=== PATIENT | female | born 1950 | race Caucasian/White ===

== ENCOUNTER → 2023-03-02 13:38 | Outpatient (BNVA) | payer MEDICARE, OTHER, SELFPAY | PROVIDERS: Visit Provider Student in an Organized Health Care Education/Training Program | DX: Z96.9 Presence of functional implant, unspecified; M16.12 Unilateral primary osteoarthritis, left hip; Z01.818 Encounter for other preprocedural examination | CPT/HCPCS: 36415; 73502; 80053; 81001; 85025; 99204 ==

== ENCOUNTER → 2023-03-17 12:39 | Outpatient (BNVA) | payer MEDICARE, OTHER, SELFPAY | PROVIDERS: Visit Provider Family Medicine | DX: Z01.818 Encounter for other preprocedural examination (principal); M16.12 Unilateral primary osteoarthritis, left hip; Z96.9 Presence of functional implant, unspecified | CPT/HCPCS: 81000; 81003 ==

== ENCOUNTER 2023-03-24 13:06 | Outpatient (CLI) | payer MEDICARE, OTHER, SELFPAY ==
--- NOTE | 2023-03-24 13:00 | CT_ITS ---
WS: [id number] CT LEFT HIP NONCONTRAST TECHNIQUE: Noncontrast CT of the LEFT hip to include the LEFT knee. CLINICAL INFORMATION: M16.12 - Unilateral primary osteoarthritis, left hip COMPARISON: None. DLP: [address] scans at [facility] use at least one of these dose optimization techniques: automated e xposure control; mA and/or kV adjustment per patient size (includes targeted exams where dose is matc hed to clinical indication); or iterative reconstruction. FINDINGS: Osteopenia. 3 screw fixation of the LEFT femur. Advanced arthritis LEFT hip with hypertrophic changes about the femoral head and neck and acetabulum. Advanced joint space narrowing. Moderate degenerative narrowing RIGHT hip. Degenerative arthritis sacroiliac joints. Sclerotic bone i sland RIGHT sacrum. Vertebroplasty changes in the lower lumbar spine. Advanced facet arthropathy lowe r lumbar spine. Moderate central canal stenosis L4-5 and mild central canal stenosis L5-S1. Tiny fat- containing umbilical hernia. Sigmoid constipation. IMPRESSION: Images obtained for preoperative purposes.
== END 2023-03-24 13:07 | disposition home or self-care (01) ==
PROVIDERS: PCP Student in an Organized Health Care Education/Training Program; Visit Provider Student in an Organized Health Care Education/Training Program
DX: M16.12 Unilateral primary osteoarthritis, left hip (principal)
CPT/HCPCS: 73700

== ENCOUNTER 2023-04-05 10:27 | Observation (INO) | payer MEDICARE, OTHER, SELFPAY ==
[2023-04-04 13:52] VITALS: BMI 22.3
[2023-04-05] VITALS (21 sets, daily range): BP systolic 91–178; BP diastolic 49–83; PULSE 66–76; RESP 16–20; TEMP 36.1–36.7; O2SAT 90–100
[2023-04-05] MEDS: lactated ringers 500 ML IV (06:23)
[2023-04-05] MEDS: ketorolac 30 mg/mL INJ IVP (06:43)
[2023-04-05] MEDS: acetaminophen 1,000 MG/100 ML PIGGYBACK 400 MG IV ×3 (06:47→22:10)
--- NOTE | 2023-04-05 06:59 | W.PM.OPSUD ---
Surgery/Procedure H&P Update DATE OF PROCEDURE: April 05, 2023 DATE H&P PERFORMED: 03/17/23 H&P UPDATE INFORMATION: I have reviewed H&P completed within last 30 days, I have examined patient prior to procedure and No changes to prior documentation PREOP DIAGNOSIS: Left hip painful orthopedic hardware and DJD PRIMARY INDICATION FOR PROCEDURE: Left hip painful orthopedic hardware and degenerative joint disease gbli-ur-xorb arthritis PLANNED PROCEDURE: Operation Date: 04/05/23 07:00 Proposed Procedures p Mark Robot Total Hip Arthroplasty(Left) - Trae Jiménez DO
[2023-04-05 07:01] LABS: Basophils % 0.4 %; Eosinophils # 0.2 10^3/uL (0.0-0.8); Eosinophils % 3.4 %; Hematocrit 44.3 % (36-47); Lymphocytes # 1.3 10^3/uL (0.8-4.8); Lymphocytes % 24.5 %; Mean Corpuscular HGB Conc 32.7 g/dL (30-55); Mean Corpuscular Hemoglobin 32.7 pg (27-33); Mean Corpuscular Volume 99.8 fl (85-98); Mean Platelet Volume 9.3 fL (7.4-10.4); Monocytes # 0.5 10^3/uL (0.2-0.9); Monocytes % 9.9 %; Neutrophils # 3.28 10^3/uL (1.8-7.7); Neutrophils % 61.4 %; Nucleated Red Blood Cells % 0 %; Platelet Count 221 10^3/cmm (157-399); Red Blood Count 4.44 10^6/uL (3.85-5.65); Red Cell Distribution Width 13.2 % (12.1-15.1); White Blood Count 5.34 10^3/uL (3.29-11.43)
[2023-04-05] MEDS: ceFAZolin 2,000 MG in sodium chloride 0.9% (plus) 50 ML 100 MG IV ×3 (07:09→22:10)
[2023-04-05 07:14] LABS: Blood Urea Nitrogen 15 mg/dL (8-23); Calcium 8.9 mg/dL (8.5-10.5); Carbon Dioxide 28 mmol/L (22-29); Chloride 105 mmol/L (98-107); Creatinine Clr Calc Pharmacy 52.3764; Glucose 89 mg/dL (65-115); Osmolality Calculated 292 mOsm/kg (285-295); Sodium 141 mmol/L (136-145)
[2023-04-05] MEDS: sodium chloride 0.9% 1,000 ML 30 ML IV (07:15)
[2023-04-05 07:24] LABS: Anion Gap 11.9 (5-19); Potassium 3.9 mmol/L (3.5-5.1)
--- NOTE | 2023-04-05 07:49 | ANES.PREANE2 ---
Pre-Anesthetic Assessment Height/Weight: Height 1.57 m Weight 55.338 kg Temp Pulse Resp BP Pulse Ox O2 Del Method 97.4 F L 70 16 178/83 97 Room Air 04/05/23 06:13 04/05/23 06:13 04/05/23 06:13 04/05/23 06:13 04/05/23 06:13 04/05/23 06:13 Preop Diagnosis: Left hip painful orthopedic hardware and DJD Operation Date: 04/05/23 07:00 Proposed Procedures p Mark Robot Total Hip Arthroplasty(Left) - Trae Butleratt, DO Was Beta Maurice taken within 24 hours: N/A Was Clonidine taken within 24 hours: N/A Last intake: Intake Last Liquid Date 04/04/23 Last Liquid Time 00:00 Last Solid Date 04/04/23 Last Solid Time 20:00 Social No tobacco Exam alert, oriented x 3, clear to auscultation bilaterally and regular rate & rhythm Airway Submandibular: within normal limits Cervical ROM: within normal limits Mallampati: Class II Comments: Comments: Upper denture History/ROS No significant history except as noted and No significant complaints GI Gastroesophageal Reflux Disease Metabolic Hyperlipidemia Neuropsych Cerebrovascular Accident Stroke years ago, no residual deficits Anesthetic Plan ASA status: 3 Anesthesia: General and Regional (specify below) Other: Spinal Risk of > 500 ml blood loss (7ml/kg in children): Yes, adequate IV access and fluids planned Medications/Allergies Home Medications Medication Instructions Recorded Confirmed Last Taken Type aspirin 81 mg tablet,delayed 81 mg PO DAILY 03/02/23 04/05/23 03/26/23 History release (Adult Aspirin Regimen) alendronate 70 mg tablet 70 mg PO Q7D 03/17/23 04/05/23 04/04/23 History atorvastatin 10 mg tablet 10 mg PO DAILY 03/17/23 04/05/23 04/04/23 History famotidine 40 mg tablet 40 mg PO DAILY 03/17/23 04/05/23 04/04/23 History duloxetine 60 mg capsule,delayed 60 mg PO DAILY 04/04/23 04/05/23 04/04/23 History release Allergies Allergy/AdvReac Type Severity Reaction Status Date / Time No Known Allergies Allergy Verified 04/04/23 13:45 Data Anesthesia 04/05/23 06:24 04/05/23 06:24 Short CBC 04/05/23 Range/Units 06:24 WBC 5.34 (3.29-11.43) 10^3/uL Hgb 14.50 (11.27-16.99) g/dL Hct 44.3 (36-47) % MCV 99.8 H (85-98) fl Plt Count 221 (157-399) 10^3/cmm Neut % (Auto) 61.4 % Neut # (Auto) 3.28 (1.8-7.7) 10^3/uL [facility] 04/05/23 06:24 Sodium 141 Potassium 3.9 Chloride 105 Carbon Dioxide 28 BUN 15 Creatinine 0.7 Glucose 89 Calcium 8.9 Blood Bank 04/05/23 06:24 Blood Type A Positive Rho(D) Type Positive Antibody Screen Negative Cardiac Studies: No Data to Display
[2023-04-05] MEDS: vancomycin 1,000 MG SDV 1000 MG XX (09:31)
--- NOTE | 2023-04-05 09:56 | PM.OP ---
Operative Report Date of procedure: April 05, 2023 Surgeon: Trae Jiménez DO Procedure: Cage Maker Machine: Richard Jiménez PA-C PA was necessary for the execution of this case with order for assistance of help with patient's set up as well as leg positioning and holding of retractors improved detecting neurovascular structures throughout the case as well as assistance with implant placement and assistance with wound closure. 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 Post-op diagnosis: Same Procedure done: Left hip removal of deep orthopedic hardware (3 cannulated screws removal and washer) Left total hip arthroplasty [facility] robotic assisted, cemented posterior approach Implants: Lesley Trident TriTanium acetabular shell 52 mm Lesely 6.5 mm acetabular screw 25 mm and 25 mm MDM liner 48 mm inner diameter polyethylene 28 mm inner diameter insert [place] Accolade C 132 degree size 5 Biolox ceramic femoral head 28mm +0 mm offset 11 mm distal cement spacer Surgeon: Trae Jiménez DO Estimated blood loss: 150 mL IV fluids: See anesthesia record Complications: None Findings: See operative report narrative Condition: stable Disposition: floor Brief History: Patient was seen evaluate in the outpatient setting worked up for for left AVN with prominent orthopedic hardware and advanced hip degenerative joint disease.? She is failed conservative treatment and given orthopedic hardware prominence of the AVN of femoral head would recommend surgical intervention.? We talked about her treatment options far as nonoperative and operative intervention.? This point time I feel that she would greatly benefit from a left hip removal of deep orthopedic hardware and proceeding with a left total hip arthroplasty [facility] robotic assisted.? Given her previous lateral incision and need for removal of hardware and anticipation of increased stress riser on the trochanter from the removal of the screws would recommend, she be a good candidate for a posterior approach.? patient understands risk benefits complication alternatives surgical nonsurgical treatment options.? She understands and agrees to proceed with surgical intervention at this time.? All questions answered. Procedure: Patient was seen evaluate in preoperative holding area.? Consent was reviewed and signed with patient.? Correct extremity was then marked.? Patient seen evaluate by anesthesia department once cleared for surgery she was taken back to the operative suite.? She underwent spinal anesthesia per the anesthesia department.? This point time she was then placed on the operative suite and table.? She was then placed in lateral decubitus patient worked with the operative hip up.? She was secured to the pegboard.? All bony prominences well-padded she was properly secured to the bed.? At this point time the operative extremity was then prepped and draped in standard orthopedic fashion with care not to drape out the iliac wing for pelvic array placement.? Final timeout performed.? Patient received appropriate preoperative antibiotics. Started off with establishment of my pelvic array pins.? A small longitudinal incision was made directly over the iliac wing.? Sharp scalpel excision through skin and subcutaneous tissue directly onto bone.? Next I then loaded my pelvic pin.? This was then drilled through the iliac wing corridor with excellent fixation.? Next I then loaded the guide which was placed directly onto bone and then subsequently placed 2 more pins to secure fixation.? Next the pelvic array was then sent had excellent visualization with the [employer] robot and was secured.? Next I proceeded with placing sterile EKG lead to the lateral thigh for distal reference marking point. ?Next I proceeded with my standard posterior approach.? Sharp scalpel through skin and subcutaneous tissue this was centered over the greater trochanter.? I then utilized a Gill elevator over the gluteus roberth fascia.? Next the fascia was then split longitudinally with bipolar electrocautery.? Next a Charnley retractor was then placed.? Hohmann was then placed into the abductors.? Prior to further dissection, we then placed our greater trochanter femur checkpoint.? We marked our appropriate checkpoint for referencing on her pelvic array.? At this point in time we then established both of our checkpoints as well as her referencing for leg lengths I utilized the small square staple on the lateral aspect of the thigh to chastity my distal point.? The legs were marked and traced to have appropriate position on the drapes to allow for accurate reading.? Preoperative measurements were then taken utilizing Mark.? Once this was completed I then proceeded with finding of patient's orthopedic hardware.? This was palpable just below the vastus ridge.? I then utilized electrocautery and split the vastus lateralis mid substance and placed a Hohmann on the anterior and posterior aspect I then identified the cannulated screws I lightly debrided any scar tissue around the screws to allow for appropriate placement of my screwdriver and screwdriver was then used to remove these 3 screws from the cannulated screw fixation atraumatically.? There was no fracturing and stable trochanter was noted 3 screws and one additional washer was removed.? I then utilized a rongeur to smooth out any bony overgrowth.? Once this was performed we then proceeded with further dissection of the femoral head. We then took our appropriate checkpoint placement on the greater trochanter as well as to assess preoperative leg lengths as a reference point prior to further dissection. Next continued with our dissection.? A standard full-thickness release of the piriformis and the short external rotators along with the capsule to grade 1 full thick sleeve for later repair was then placed straight down to the lesser trochanter.? Lesser trochanter was then subsequently identified. Once this was then established I then proceeded with dislocation of the femoral head.? At this point Hohmann's were then placed superiorly and inferiorly.?? sciatic nerve was protected throughout this case.? At this point time I then utilized the [employer] robot and referencing point to reference different aspects along the femoral head and neck for my appropriate neck length.? These were referenced on the inferior mid substance as well as up into the superior shoulder of the femoral neck.? This marked? Subsequently oscillating saw was used to make my femoral neck cut.? Femoral head was removed. Next the leg was placed in appropriate position and my anterior and posterior acetabular retractors then placed.? Next I excised the labrum and then remove the puvlinar.? It was clearly evident patient had significant arthritic and degenerative changes of the acetabulum and once again verified proceeding with total hip replacement.? I did do a small release of the inferior capsule which was severely taut to allow for easier placement of my reamers as well as reduction.? Acetabulum was thoroughly irrigated.? Patient was found to have significant eburnated bone and loss of cartilage throughout the acetabulum consistent with severe pczj-wq-lcny arthritis. ? At this point in time keeping my retractors in place.? Then utilizing the [employer] system plotted out multiple points on her inner aspects of the acetabulum as well as the outer aspects of the acetabulum as well as targeted my confirmation points to confirm appropriate registration of the acetabulum once this was done we were set for reaming.? I subsequently loaded up the [employer] robot for my acetabular reaming I set my 52mm reamer under the [employer] robot and subsequently held this with appropriate preplanned preop planned version of 40 degrees of abduction angle as well as 20 degrees of anteversion.?? This had excellent porous bleeding bone throughout.? We opened up the acetabular shell of the 52 mm Lesley this was then loaded onto my impacting system and then I subsequently impacted this to appropriate depth.? This was then removed from the robot and I used the Mark probe at the center to confirm on the CT scan that this was down on bone which it was.? Next I then drilled and placed 2 acetabular screws with excellent fixation these were drilled and measured to be 25 and 25 mm this was in the posterior superior aspect of the acetabulum had excellent fixation.? The cup was solid with no evidence of plain had excellent press-fit fixation. Plan for MDM for added stability subsequently opened MDM cementless liner and impacted this into appropriate position which had excellent fixation. I then placed a sponge into the acetabulum to protect the liner while? femur preparation was performed.? Once this was performed I irrigated the socket and then turned my attention towards the femoral preparation.? I utilized Bovie and rongeur to remove the soft tissue off of the saddle.? Once this was done a box osteotome followed by a canal finder and? lateralizing rattail rasp was used to appropriately lateralized in the canal.? Given the cannulated screw removal as well as patient's age and bone quality elected to proceed with an Accolade C cementing stem.? next I then subsequently broached to a size 5 Accolade C. Lesley femoral stem which had appropriate fixation.? I was able to trial with this and this appeared to be appropriate length with ability to add slight offset if needed once cemented.? Once this was done I then removed the size 5 femoral stem and then subsequently proceeded with standard cementation technique.? Cement was mixed on the back table the final implant was opened and appropriately measurement on distal cement plug to accommodate the cement mantle and femoral stem.? This was set and impacted in place to appropriate depth.? Next I utilized the cement brush thoroughly irrigated the canal and then dry the canal tampon.? Once cement was appropriately mixed and ready for cementation informed anesthesia and they optimize patient's oxygenation cement was then impacted using cement gun and then was subsequently pressurized.??Cement did extrude through the previous cannulated screw sites this was excess removed but the rest was left into feel any weak spots in void.? Once satisfied after my pressurization, The femoral stem size 5 Accolade C was then impacted in place with appropriate anteversion and held into place and all excess cement was removed and allowed to cure.? Once cured I then? performed multiple trials and and subsequently reduced the hip.? With multiple trials performed was determined a +0mm offset was found to have appropriate leg lengths with the Mark robot. ? Patient appeared to have equal leg lengths clinically.? The hip was taken through range of motion and had excellent stability with hip flexion and internal rotation with no evidence of instability had an appropriate shuck.? This point time utilized the Mark probe from our femur checkpoint down to her distal checkpoint and this had appropriate leg lengths.? At this point I dislocated the hip and then called for my final Femoral head implant. The final MDM +0 mm? femoral head which was impacted.? This was impacted with excellent fixation and the hip was subsequently reduced.? We measured our final leg lengths which were appropriate patient had excellent stability in all ranges of motion.? This point time a robotic pins and checkpoints were removed.? I remove the femur checkpoint as well as my pelvic array and iliac wing pins.? Appropriate counts were then made.? This point time thoroughly irrigated the wound bed with pulse lavage.? Vancomycin powder was then sprinkled into the wound bed.? I then performed a standard capsular and external rotator repair utilizing #5 Ethibond and this was tied and repaired through bone tunnels hip was then kept in abduction external rotation 1 and subsequently closed the fascial layer with Ethibond suture as well as running strata fix suture.? I then closed the deep subcutaneous layer as well as superficial subcutaneous layer with running strata fix suture as well as 4-0 strata fix for skin.? Prineo glue dressing was then placed over the skin.? I then irrigated the pelvic array pin site.? There is were then closed with interrupted 0, 2-0 Vicryl suture and Monocryl as well as Prineo glue for the skin.? Incisions were then covered with Silverlon dressing. Patient was awakened from anesthesia and taken to PACU in stable condition Disposition: Patient taken to PACU in stable condition.? She will receive appropriate discharge instructions as well as DVT prophylaxis and pain medication.? She will be admitted to the floor for observation should be evaluated by the internal medicine team for medical management.? Patient received appropriate DVT prophylaxis as well as pain medication PT/OT weightbearing as tolerated to operative extremity with posterior hip precautions.? We will follow-up with patient in the office in 2 weeks.? Patient understands agrees with current plan.? All questions answered.
--- NOTE | 2023-04-05 09:56 | W.PM.BPON ---
Date of Procedure: 04/05/2023 Surgeon: Trae Jiménez DO Building Maintenance Mechanic(s): Richard Jiménez PA-C Procedure(s) performed: Left hip removal of deep orthopedic hardware and left total hip arthroplasty [facility] robotic assisted Findings of the procedure(s): Left hip cannulated screws with AVN and severe joint space collapse with hardware failure/loosening left hip degenerative joint disease with myut-kx-tvqo articulation, procedure went as planned Estimated blood loss: 150 mL Specimen(s) removed: 3 cannulated screws and washer removed, left femoral head removed Post-operative diagnosis: Left hip painful orthopedic hardware, loose cannulated screws with AVN and left hip degenerative joint disease
--- NOTE | 2023-04-05 10:03 | XRR_ITS ---
PROCEDURE INFORMATION: Exam: XR Left Hip Exam date and time: 04/05/2023 10:16 AM Age: 72 years old Clinical indication: Device placement; Other: Left denny; Prior surgery; Surgery date: Post-operative (0-2 days); Additional info: Post op left denny, do in pacu TECHNIQUE: Imaging protocol: Radiologic exam of the left hip. Views: 2 or 3 views hip with pelvis when performed. COMPARISON: CT hip LT [facility] 03/24/2023 1:21 PM FINDINGS: Bones/joints: Satisfactory immediate postoperative radiographic appearance of left total hip arthroplasty. Soft tissues: Expected gas in the soft tissues. XR/XR hip LT 2-3V wo/w pel* [id number] IMPRESSION: Satisfactory postoperative appearance of left total hip arthroplasty.
--- NOTE | 2023-04-05 10:19 | PM.PACU ---
PACU note Narrative: Patient is a 72-year-old female that just underwent a total left hip arthroplasty. Pt transferred to PACU in stable condition. Dressing is dry. pt is awake and alert. pt can wiggle toes and plantarflex and dorsiflex foot. pt able to perform straight leg raise, Femoral nerve intact. Distal pulses are palpable toes are warm and well-perfused. Cap refill is normal and under 2 seconds. Able to fully assess sensation of the leg due to residual spinal anesthetic. Pain is controlled. Exam: awake Disposition: admitted
[2023-04-05] MEDS: lactated ringers 1,000 ML 100 ML IV ×2 (11:37→20:32)
[2023-04-05] MEDS: chlorhexidine gluconate 0.12% Btl 473 mL 30 ML MUCOUS MEM ×3 (13:26→20:33)
[2023-04-05] MEDS: ketorolac 30 mg/mL INJ 15 MG IVP ×2 (13:26→20:29)
--- NOTE | 2023-04-05 16:43 | ANE.PACU2 ---
Inpatient post-anesthesia follow up: Airway intact: Yes Vital signs: Temperature 97.5 F Pulse Rate 71 Respiratory Rate 18 Blood Pressure 99/61 Pulse Oximetry 96 Oxygen Delivery Me thod Room Air Oxygen Flow Rate 2 Fraction of Inspir ed Oxygen Hydration adequate: Yes Nausea and vomiting: No Pain level: 2 Mental status: Baseline
[2023-04-05] MEDS: mupirocin oint 22 gm 1 APPLIC NASAL (17:10)
[2023-04-05] MEDS: sennosides-docusate Tablet 2 TAB PO (17:10)
[2023-04-05] MEDS: iron polysaccharide complex 150 mg Capsule PO (17:10)
[2023-04-05] MEDS: calcium carb-vit d 600mg/400unit 1 Tablet 1 EACH PO (17:10)
[2023-04-05] MEDS: oxyCODONE 5 mg IR Tab/Cap PO (21:53)
[2023-04-06] VITALS (9 sets, daily range): BP systolic 86–124; BP diastolic 59–74; PULSE 69–75; RESP 16–18; TEMP 36.4–37; O2SAT 95–97
[2023-04-06] MEDS: oxyCODONE 5 mg IR Tab/Cap PO ×2 (04:53→14:55)
[2023-04-06 05:09] LABS: Basophils % 0.2 %; Eosinophils # 0.1 10^3/uL (0.0-0.8); Hematocrit 30.2 % (36-47); Lymphocytes # 0.5 10^3/uL (0.8-4.8); Lymphocytes % 11.2 %; Mean Corpuscular HGB Conc 31.8 g/dL (30-55); Mean Corpuscular Hemoglobin 32.3 pg (27-33); Mean Corpuscular Volume 101.7 fl (85-98); Mean Platelet Volume 9.5 fL (7.4-10.4); Monocytes # 0.4 10^3/uL (0.2-0.9); Monocytes % 8.9 %; Neutrophils # 3.34 10^3/uL (1.8-7.7); Neutrophils % 76.5 %; Nucleated Red Blood Cells % 0 %; Platelet Count 123 10^3/cmm (157-399); Red Blood Count 2.97 10^6/uL (3.85-5.65); Red Cell Distribution Width 13.4 % (12.1-15.1); White Blood Count 4.37 10^3/uL (3.29-11.43)
[2023-04-06 05:32] LABS: Anion Gap 9.3 (5-19); Blood Urea Nitrogen 11 mg/dL (8-23); Calcium 8.6 mg/dL (8.5-10.5); Carbon Dioxide 28 mmol/L (22-29); Chloride 109 mmol/L (98-107); Creatinine Clr Calc Pharmacy 52.3764; Glucose 123 mg/dL (65-115); Osmolality Calculated 295 mOsm/kg (285-295); Potassium 4.3 mmol/L (3.5-5.1); Sodium 142 mmol/L (136-145)
[2023-04-06] MEDS: acetaminophen 1,000 MG/100 ML PIGGYBACK 400 MG IV (06:07)
[2023-04-06] MEDS: ceFAZolin 2,000 MG in sodium chloride 0.9% (plus) 50 ML 100 MG IV (06:08)
[2023-04-06] MEDS: iron polysaccharide complex 150 mg Capsule PO (07:59)
[2023-04-06] MEDS: multivitamin therapeutic Tablet 1 TAB PO (07:59)
[2023-04-06] MEDS: calcium carb-vit d 600mg/400unit 1 Tablet 1 EACH PO (07:59)
[2023-04-06] MEDS: apixaban 5 mg Tablet 2.5 MG PO (08:00)
[2023-04-06] MEDS: sennosides-docusate Tablet 2 TAB PO (08:00)
[2023-04-06] MEDS: chlorhexidine gluconate 0.12% Btl 473 mL 30 ML MUCOUS MEM ×2 (08:04→12:58)
[2023-04-06] MEDS: mupirocin oint 22 gm 1 APPLIC NASAL (08:04)
[2023-04-06] MEDS: sodium chloride 0.9% 500 ML 999 ML IV (09:10)
--- NOTE | 2023-04-06 09:36 | ECG_ITS ---
[facility] Test Date: 2023-04-06 Pat Name: Olivia Erwin Department: Room: 272 Gender: Female Clinical Applications Specialist: : [id number] Requested By: Sofy Wallace Order Number: [id number] Viki MD: Thony Posada M.D. Measurements Intervals Pony Rate: 66 P: 58 NM: 142 QRS: 23 QRSD: 81 T: 1 QT: 366 QTc: 386 Interpretive Statements SINUS RHYTHM NONSPECIFIC T-WAVE ABNORMALITY No previous ECG available for comparison Electronically Signed On 04-06-2023 11:18:34 CDT by Thony Posada M.D. [id number]
[2023-04-06 09:38] LABS: Hematocrit 28.8 % (36-47)
--- NOTE | 2023-04-06 09:48 | PM.CONSULT ---
Providers/Reason For Consult Consulting Physician/Specialty*: Hospitalist Reason for Consult*: Postoperative management Attending Physician: Trae Jiménez DO Primary Care Provider: Trae Jiménez DO History of Present Illness History of Present Illness Olivia Erwin is a 72 year old female status post left total hip arthroplasty, removal of deep orthopedic hardware, hospital service was requested for medical management. Patient was not in pain after surgery, she was kept on IV fluids, she was given DVT prophylaxis and opioids along bowel regimen. On 04/06 with physical therapy she became dizzy and hypotensive, her symptoms improved as soon as she rested and received IV fluid bolus, repeat H&H was requested, no significant drop in hemoglobin since surgery. She has been afebrile. Patient is anticipating going home, stating her 25-year-old grandson will be there to take care of her Willing to stay until noon to make her disposition plan Review of Systems Const: Denies: fever(s) Eyes: Denies: change in vision ENMT: Denies: throat pain Card: Denies: chest pain Resp: Denies: dyspnea GI: Denies: abdominal pain : Denies: flank pain Musc: Denies: neck pain Skin/Breast: Denies: rash Medications/Allergies Home Medications Medication Instructions Recorded Confirmed Last Taken Type aspirin 81 mg tablet,delayed 81 mg PO DAILY 03/02/23 04/05/23 03/26/23 History release (Adult Aspirin Regimen) alendronate 70 mg tablet 70 mg PO Q7D 03/17/23 04/05/23 04/04/23 History atorvastatin 10 mg tablet 10 mg PO DAILY 03/17/23 04/05/23 04/04/23 History famotidine 40 mg tablet 40 mg PO DAILY 03/17/23 04/05/23 04/04/23 History duloxetine 60 mg capsule,delayed 60 mg PO DAILY 04/04/23 04/05/23 04/04/23 History release Allergies Allergy/AdvReac Type Severity Reaction Status Date / Time No Known Allergies Allergy Verified 04/04/23 13:45 Current Medications Generic Name Dose Route Start Last Admin Trade Name Freq PRN Reason Stop Dose Admin Chlorhexidine Gluconate 30 ml 04/05/23 13:00 04/05/23 17:01 Chlorhexidine Gluconate 0.12% Btl 473 Ml MUCOUS MEM 30 ml QID SEVEN Administration Lactated Ringer's 1,000 mls @ 100 mls/hr 04/05/23 11:11 04/05/23 11:37 Lactated Ringers IV 100 mls/hr .Q10H SEVEN Administration Acetaminophen 1,000 mg in 100 mls @ 400 mls/hr 04/05/23 15:00 04/05/23 15:42 Acetaminophen IV 04/06/23 07:14 Infused Q8H SEVEN Infusion Cefazolin Sodium 2,000 mg/ 50 mls @ 100 mls/hr 04/05/23 15:00 04/05/23 16:19 Sodium Chloride IV 04/06/23 07:29 Infused Q8H SEVEN Infusion Protocol Ketorolac Tromethamine 15 mg 04/05/23 11:11 04/05/23 13:26 Ketorolac 30 Mg/Ml Inj IVP 15 mg Q6H PRN Administration SEVERE PAIN PFSH Acute PFSH: Medical History (Updated 04/06/23 @ 09:51 by Sofy Wallace MD) Hip pain Surgical History (Updated 04/06/23 @ 09:51 by Sofy Wallace MD) History of hip surgery Family History (Updated 04/06/23 @ 09:50 by Sofy Wallace MD) Denies family history of CAD (coronary artery disease) Social History (Updated 04/06/23 @ 09:50 by Sofy Wallace MD) Smoking and tobacco status: unknown if ever smoked Alcohol intake: never Vitals/I&O/Wt Last Vital Signs Temp 97.7 F 04/05/23 16:05 Pulse 66 04/05/23 16:05 Resp 18 04/05/23 16:05 BP 96/61 04/05/23 16:05 Pulse Ox 96 04/05/23 16:05 O2 Del Method Room Air 04/05/23 16:05 O2 Flow Rate 2 04/05/23 10:34 04/05/23 04/05/23 04/05/23 06:59 14:59 22:59 Intake Total 2620 / 2620 150 / 2770 Output Total 300 / 300 250 / 550 Balance 2320 / 2320 -100 / 2220 Weight last 48 hrs Weight 55.338 kg Weight 55.338 kg Physical Exam Narrative: Pleasant and cooperative GCS 15 Work with PT Became hypotensive She was nauseous Symptoms improved as soon as we give her a bolus and patient rested in a recliner No active emesis GCS 15 Nonfocal neuro exam S1, S2 Abdomen soft Clinically looks dehydrated Urinary Catheter Management: Murphy: Cath Placed During This Visit: yes Urinary Catheter Date of Insertion: 04/05/23 Urinary Catheter Time of Insertion: 07:30 Data 04/06/23 09:31 04/06/23 04:35 A&P Assessment and plan (1) S/P total left hip arthroplasty: (2) Orthostatic hypotension: Plan Orthostatic hypotension Postop day 1 No postoperative complication Repeat H&H Currently on DVT prophylaxis I will give her IV fluid bolus of 500 mL Patient symptoms have improved already Patient is denying any cardiac history no active chest pain or shortness of breath Work with PT, stating that she would like to go home there is grandson who is 25 years old who would help him I have asked patient to stay until noon to see if her symptoms would resolve Further disposition plan will be made after orthopedics evaluation today If her symptoms have improved and she is not experiencing orthostatic hypotension she may be able to go home today Consult Attestations Medical Necessity Statement: Continue medical management Diagnoses S/P total left hip arthroplasty Z96.642 Orthostatic hypotension I95.1
[2023-04-06] MEDS: lactated ringers 1,000 ML 100 ML IV (09:49)
--- NOTE | 2023-04-06 10:22 | PC.CHAP ---
Pastoral Care Encounter/Spiritual Assessment Type of Contact [] Declined retail buyer visit [] Patient/Family/Request visit [] Outpatient visit [] Follow-up visit [] Physician referral [] Code/Alert [x] Routine visit [] Staff referral [] Actively dying [] Patient sleeping [] Family support [] [] Out of room [] Palliative care [] [x] Receiving care in room [] Pre-surgical visit [] Trauma [] Long length of stay [] ICU visit [] Other: Relational/Emotional Strength [x] Patient feels connected with others/family/visitors/staff [] Distress [] Loneliness/isolation [] Abandonment Spirituality of Patient [x] Person of Charissa [] Attends Restorationist of their Charissa [x] Believes in Prayer [] Reads Bible or Scientologist materials [] There are Spiritual issues to be addressed Polymerization Supervisor Interventions [x] Prayer [x] Active listening [x] Non-anxious presence [x] Spiritual/emotional support [] Crisis/trauma care [x] Spiritual counseling [] Bereavement support [] Provided bereavement packet [] Provided Bible/devotional materials [] Provided toy/stuffed animal, coloring book to patient or family member [] Provided Communion [] Anointing/[place] [] Salvation [x] Completed spiritual assessment [] Other: Impact on Illness or Injury [] Angry [] Fearful [] Anxious [] Often cries [] Exhaustion [] Unable to work [] Unable to attend holiness [] Unable to walk/stand [] Unable to read [] Unable to drive [] Unable to eat/drink [] Unable to sleep [] Unable to be with family [] Patient intubated [] Other: Summary hip proceeduer has a good attitude some rehab well be going home Time spent with patient 10 mins
--- NOTE | 2023-04-06 12:01 | P.PN_ITS ---
Subjective Subjective: Patient is a 72-year-old female that is 1 day postop left total hip arthroplasty. Patient had no acute events overnight. She has gotten up with PT yesterday and today has been ambulating and weightbearing on the leg. Pain has been controlled. Denies any fevers, nausea or vomiting. Vitals/I&O/Wt Last Vital Signs Temp 97.5 F L 04/06/23 07:46 Pulse 72 04/06/23 11:14 Resp 16 04/06/23 11:14 BP 119/71 04/06/23 11:14 Pulse Ox 97 04/06/23 11:14 O2 Del Method Room Air 04/06/23 08:30 O2 Flow Rate 2 04/05/23 10:34 04/05/23 04/06/23 04/06/23 22:59 06:59 14:59 Intake Total 1631.667 / 4251.667 1250 / 5501.667 910 / 910 Output Total 250 / 550 900 / 1450 Balance 1381.667 / 3701.667 350 / 4051.667 910 / 910 Weight last 48 hrs Weight 122 lb Weight 122 lb Physical Exam Const: COMMON NORMALS: no acute distress, healthy appearing and alert GENERAL APPEARANCE: cooperative HENMT: COMMON NORMALS: atraumatic HEAD & SCALP: atraumatic Resp: COMMON NORMALS: normal respiratory effort EFFORT & INSPECTION: Yes able to speak in complete sentences and No respiratory distress Extremity: NARRATIVE EXTREMITY EXAM: Left leg/hip?Silverlon dressing is dry and intact. Patient unable to perform straight leg raise, dorsiflex and plantarflexion of foot. Patient's toes are warm and well-perfused and cap refill under 2 seconds. Neuro: SENSORIUM/ORIENTATION: Yes alert Urinary Catheter Management: Murphy: Cath Placed During This Visit: yes, but has since been removed by the nurse Reason for Continuing Indwelling Catheter: Decision to DC Catheter Urinary Catheter Date of Insertion: 04/05/23 Urinary Catheter Time of Insertion: 07:30 Date Urinary Catheter Removed: 04/06/23 Time Urinary Catheter Discontinued: 07:04 Data 04/06/23 09:31 04/06/23 04:35 A&P Assessment and plan (1) S/P total left hip arthroplasty: Plan Plan: -Imaging and Labs reviewed -Hospitalist on board for medical management. -DVT prophylaxis - Weightbearing on left leg as tolerated -Pain control -PT Patient is cleared from an orthopedic standpoint and is stable to be discharged to Rehab facility in [place]. We will follow peripherally. She has an appointment to [facility] in 2 weeks. Attestations 2 Medical Necessity Statement*: Ongoing care for left hip total arthroplasty Coding Level of Care Code Acute Code for [facility] Fwd Diagnoses S/P total left hip arthroplasty Z96.642
--- NOTE | 2023-04-06 16:12 | P.DS_ITS ---
Discharge Providers Date of Admission: 04/05/23 10:27 Date of Discharge: April 06, 2023 Attending Provider at Admission: Trae Jiménez DO Attending Provider at Discharge: Trae Jiménez DO Consults: Hospitalist Dr. 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 Once cleared by anesthesia for surgery subsequently was taken back to the operative suite underwent? anesthesia per the anesthesia department and then underwent surgery left hip removal of hardware and total hip arthroplasty with Mark robotic assistance without any complications.? Patient was then subsequently taken back to PACU in stable condition recovering well.? Once recovered, patient was then subsequently admitted to the floor postoperatively.? Internal medicine was consulted for medical management assistance.? Patient weightbearing as tolerated to the operative extremity, posterior hip precautions.? PT/OT.? Pain control.? DVT prophylaxis.? Postoperative antibiotics and TXA.?? Silverlon dressing was left in place and changed as needed. Internal medicine was on board and appreciate their medical management and assistance.Pt was determined on postoperative day 1 the patient was stable for discharge from orthopedic as well as internal medicine standpoint.? Patient's labs were monitored daily.?Patient will receive appropriate pain medication as well as resume home anticoagulation for DVT prophylaxis postoperatively.?? Appropriate discharge instructions as well.? Patient was then discharged in stable condition.? Patient will discharge home with home health care.? Pt will follow-up with Dr. Jiménez in the office in 2 weeks.? Patient understands and agrees with current plan.? All questions answered.? Understands there is any issues or concerns and contact the office. Physical Exam Const: COMMON NORMALS: no acute distress, healthy appearing and alert GENERAL APPEARANCE: cooperative HENMT: COMMON NORMALS: atraumatic HEAD & SCALP: atraumatic Resp: COMMON NORMALS: normal respiratory effort EFFORT & INSPECTION: Yes able to speak in complete sentences and No respiratory distress Extremity: NARRATIVE EXTREMITY EXAM: Left leg/hip?Silverlon dressing is dry and intact. Patient able to perform straight leg raise, dorsiflex and plantarflexion of foot. Sensation intact light touch distally. Compartments soft and compressible. Patient's toes are warm and well-perfused and cap refill under 2 seconds. Neuro: SENSORIUM/ORIENTATION: Yes alert Urinary Catheter Management: Murphy: Cath Placed During This Visit: yes, but has since been removed by the nurse Reason for Continuing Indwelling Catheter: Decision to DC Catheter Urinary Catheter Date of Insertion: 04/05/23 Urinary Catheter Time of Insertion: 07:30 Date Urinary Catheter Removed: 04/06/23 Time Urinary Catheter Discontinued: 07:04 Discharge Data Studies Completed and Pending Completed Studies During Hospitalization Category Date Time Status XR hip LT 2-3V wo/w pel* [id number] Routine Exams 04/05/23 10:03 Completed Pending at discharge Category Date Time Status Basic Metabolic Panel AM LABS Lab 04/07/23 04:00 Ordered Basic Metabolic Panel AM LABS Lab 04/08/23 04:00 Ordered Complete Blood Count w/Auto AM LABS Lab 04/07/23 04:00 Ordered Complete Blood Count w/Auto AM LABS Lab 04/08/23 04:00 Ordered Radiology Impressions Hip/Pelvis X-Ray 04/05/23 10:03 IMPRESSION: Satisfactory postoperative appearance of left total hip arthroplasty. Laboratory Results WBC 4.37 10^3/uL (3.29-11.43) 04/06/23 04:35 RBC 2.97 10^6/uL (3.85-5.65) L 04/06/23 04:35 Hgb 9.30 g/dL (11.27-16.99) L 04/06/23 09:31 Hct 28.8 % (36-47) L 04/06/23 09:31 MCV 101.7 fl (85-98) H 04/06/23 04:35 MCH 32.3 pg (27-33) 04/06/23 04:35 MCHC 31.8 g/dL (30-55) 04/06/23 04:35 RDW 13.4 % (12.1-15.1) 04/06/23 04:35 Plt Count 123 10^3/cmm (157-399) L D 04/06/23 04:35 MPV 9.5 fL (7.4-10.4) 04/06/23 04:35 Neut % (Auto) 76.5 % 04/06/23 04:35 Lymph % (Auto) 11.2 % 04/06/23 04:35 [place] % (Auto) 8.9 % 04/06/23 04:35 Eos % (Auto) 3.0 % 04/06/23 04:35 Baso % (Auto) 0.2 % 04/06/23 04:35 Neut # (Auto) 3.34 10^3/uL (1.8-7.7) 04/06/23 04:35 Lymph # (Auto) 0.5 10^3/uL (0.8-4.8) L 04/06/23 04:35 [place] # (Auto) 0.4 10^3/uL (0.2-0.9) 04/06/23 04:35 Eos # (Auto) 0.1 10^3/uL (0.0-0.8) 04/06/23 04:35 Baso # (Auto) 0.0 10^3/uL (0.0-0.1) 04/06/23 04:35 Nucleated RBC % (auto) 0 % 04/06/23 04:35 Nucleated RBCs # 0.0 /100WBC 04/06/23 04:35 Sodium 142 mmol/L (136-145) 04/06/23 04:35 Potassium 4.3 mmol/L (3.5-5.1) 04/06/23 04:35 Chloride 109 mmol/L (98-107) H 04/06/23 04:35 Carbon Dioxide 28 mmol/L (22-29) 04/06/23 04:35 Anion Gap 9.3 (5-19) 04/06/23 04:35 BUN 11 mg/dL (8-23) 04/06/23 04:35 Creatinine 0.6 mg/dL (0.5-0.9) 04/06/23 04:35 GFR Calculation Not Reportable 04/06/23 04:35 Glucose 123 mg/dL (65-115) H 04/06/23 04:35 Calculated Osmolality 295 mOsm/kg (285-295) 04/06/23 04:35 Calcium 8.6 mg/dL (8.5-10.5) 04/06/23 04:35 Blood Type A Positive 04/05/23 06:24 Rho(D) Type Positive 04/05/23 06:24 Antibody Screen Negative 04/05/23 06:24 Vitals Last Vital Signs Temp 97.5 F L 04/06/23 07:46 Pulse 72 04/06/23 11:14 Resp 18 04/06/23 14:55 BP 119/71 04/06/23 11:14 Pulse Ox 97 04/06/23 11:14 O2 Del Method Room Air 04/06/23 08:30 O2 Flow Rate 2 04/05/23 10:34 Discharge Plan Discharge Patient Disposition: Home Health Service Condition: Stable Prescriptions: New Eliquis 2.5 mg tablet 2.5 mg PO BID 35 Days Qty: 70 0RF oxycodone 5 mg tablet 5 mg PO Q6H PRN (Reason: pain postop) 7 Days Qty: 28 0RF Continued alendronate 70 mg tablet 70 mg PO Q7D famotidine 40 mg tablet 40 mg PO DAILY atorvastatin 10 mg tablet 10 mg PO DAILY duloxetine 60 mg capsule,delayed release(DR/EC) 60 mg PO DAILY Discontinued aspirin [Adult Aspirin Regimen] 81 mg tablet,delayed release (DR/EC) 81 mg PO DAILY Discharge Orders: Discharge Order (Routine); Ordered 04/06/23 Ordered By: Trae Jiménez Other Ambulatory Orders: DME: Dong (Order) Location: None Selected Ordered By: Trae Jiménez Referrals: HOLDEN Galvan [Other] - 04/07/23 2:45 pm (Establish PCP to obtain HH) [facility] [place] [Outside] [facility] [Outside] Trae Jiménez, DO [Primary Care Provider] - (We have notified your physician's clinic of the need for a follow-up appointment to be scheduled. If you have not heard from them within the next 2 business days, please call them directly. You may also reach out to our quality manager at [phone] and she can assist you.) Discharge Diet: Regular Discharge Activity: Limit activity as instructed Patient Instructions: Oxycodone, Rapid Release (By mouth) (ETH-Oxydose, Oxy IR,..., Ondansetron (By mouth), Apixaban (By mouth), Precautions after Total Joint Replacement Surgery (GEN), Total Hip Replacement (GEN), Joint Replacement Stoplight, Opioid Safety Activity Restrictions/Additional Instructions: Patient may weight-bear as tolerated to the operative lower extremity Posterior hip precautions (avoid excess excessive hip flexion past 90 degrees and internal rotation) Take DVT prophylaxis (blood thinner) as prescribed (Eliquis) Take pain medication as prescribed Take antinausea medication as needed Supplement with Citracal vitamin D for bone health and healing Ice as needed for pain and swelling Leave Silverlon bandage dressing on for 7 days after that may remove, rinse incision with warm soapy water/shower pat dry keep clean dry and intact and redress with a clean dry dressing. No baths or soap Follow-up in the orthopedic office in 2 weeks from date of surgery Contact the office for any questions or concerns per (fevers, increased drainage or redness around the incision site etc.) Discharge Attestations Time Spent in Discharge Care*: less than 30 min Quality Metrics Clinical Quality Measures [ No reported AMI, CVA or VTE this stay] Coding Level of Care Code Acute Code for [facility] Fwd Diagnoses S/P total left hip arthroplasty Z96.642
== END 2023-04-06 17:37 | disposition home health service (06) ==
LOC: MEDSURG 10:27
PROVIDERS: Internal Medicine; Admitting Provider Student in an Organized Health Care Education/Training Program; PCP Student in an Organized Health Care Education/Training Program; Visit Provider Student in an Organized Health Care Education/Training Program
PROC: 8E0Y0CZ Robotic Assisted Procedure of Lower Extremity, Open Approach (ICD-10-PCS; CPT 27130; principal; 2023-04-05 07:00)
PROC: (CPT 20680; 2023-04-05 07:00)
DX: M16.12 Unilateral primary osteoarthritis, left hip (principal); T84.84XA Pain due to internal orthopedic prosthetic devices, implants and grafts, initial encounter; Y99.9 Unspecified external cause status; Z79.82 Long term (current) use of aspirin; I95.1 Orthostatic hypotension; K21.9 Gastro-esophageal reflux disease without esophagitis; E78.5 Hyperlipidemia, unspecified; Z86.73 Personal history of transient ischemic attack (TIA), and cerebral infarction without residual deficits
CPT/HCPCS: 20680; 27130; 36415; 51702; 73502; 80048; 85014; 85018; 85025; 86850; 86900; 93005; 97110; 97116; 97161; 97166; 97530; 97535; C1713; C1776; G0378; J0131; J0690; J1885; J2250; J2371; J2704; J3010; J3370; J7030; J7040; J7120

== ENCOUNTER 2023-04-14 16:31 | Emergency (ER) | payer MEDICARE, OTHER, SELFPAY ==
[2023-04-14 16:39] VITALS: BP 148/72; PULSE 73; RESP 16; TEMP 36.6; O2SAT 100; BMI 21.9
--- NOTE | 2023-04-14 17:05 | ED_ITS ---
HPI - Abdominal Pain General: Chief Complaint: Abdominal Pain Stated Complaint: abdominal pain/constipation Time Seen by Provider: 04/14/23 16:45 Source: patient Mode of arrival: ambulatory History of Present Illness: 72-year-old female presents emergency room complaining of right lower quadrant abdominal pain and discomfort. She denies any fever sweats chills nausea vomiting diarrhea no dysuria urgency or frequency. She is on Eliquis for status post left hip surgery where she had an arthroplasty. She denies any medic easy melena hematemesis coffee-ground emesis. She did have bowel movement earlier today which she said was extremely firm she had attributed to her decreased activity recently. MD elicited complaint: abdominal pain Onset (ago): day(s) Pain Consistency: constant Location: RLQ Severity: moderate Quality: sharp Radiation: none Exacerbating factors: nothing Relieving factors: nothing Associated Symptoms: Denies anorexia, belching, bloating, change in bowel habits, change in stool character, chills, coffee ground emesis, constipation, GI cramping, diarrhea, dyspepsia, dysuria, excessive flatus, fever(s), heartburn, hematochezia, hematuria, hematemesis, fecal incontinence, loose stools, melena, nausea, poor appetite, syncope and vomiting Review of Systems Const: Denies: fever(s) or chills ENMT: Denies: throat pain, ear or mastoid pain, nasal discharge or nasal congestion Card: Denies: chest pain, palpitations, irregular heart rhythm or syncope Resp: Denies: dyspnea GI: Reports: abdominal pain; Denies: nausea, vomiting, hematemesis, coffee ground emesis, heartburn, diarrhea, constipation, bloating, GI cramping, belching, excessive flatus, fecal incontinence, change in bowel habits, change in stool character, hematochezia or melena : Denies: flank pain, dysuria, urinary frequency, urinary urgency or hematuria Skin/Breast: Denies: rash or pruritus PFSH ED PFSH: Medical History Hip pain Surgical History History of hip surgery Family History Denies family history of CAD (coronary artery disease) Social History Smoking and tobacco status: unknown if ever smoked Alcohol intake: never Physical Exam Const: GENERAL APPEARANCE: cooperative and comfortable ORIENTATION/CONSCIOUSNESS: Yes awake, Yes oriented to person, Yes oriented to place and Yes oriented to time HENMT: COMMON NORMALS: normocephalic, atraumatic and hearing grossly normal bilaterally HEAD & SCALP: normocephalic and atraumatic Resp: COMMON NORMALS: normal respiratory effort, No retractions, No use of accessory muscles and clear to auscultation bilaterally AUSCULTATION: clear to auscultation bilaterally Cardio: COMMON NORMALS: regular rate, regular rhythm and No murmurs present (Cardio) RATE: regular rate RHYTHM: regular rhythm GI: COMMON NORMALS: No hepatosplenomegaly present AUSCULTATION: Yes normoactive bowel sounds PALPATION: Yes Tenderness to palpation present (GI) Details: RLQ, No Guarding due to palpation present (GI) and Yes No hepatosplenomegaly present Extremity: COMMON NORMALS: normal to inspection, capillary refill normal, no clubbing, cyanosis or edema, no calf tenderness and no pedal edema Neuro: SENSORIUM/ORIENTATION: Yes oriented to person, Yes oriented to place and Yes oriented to time Skin: COMMON NORMALS: no rashes or lesions noted GENERAL SKIN EXAM: no rashes or lesions noted Course Vital Signs: Vital signs: Vital Signs Temperature 97.8 F 04/14/23 16:39 Pulse Rate 73 04/14/23 16:39 Respiratory Rate 16 04/14/23 16:39 Blood Pressure 148/72 04/14/23 16:39 Pulse Oximetry 100 04/14/23 16:39 Oxygen Delivery Me thod Room Air 04/14/23 16:39 MDM - Abdominal Pain Medical Decision Making Labs and imaging reviewed. No leukocytosis. Slight increase in her AST and alk phos but clinically there is no right upper quadrant abdominal pain KUB of her abdomen shows large amount of retained stool I think her discomfort is from constipation. We will discharge patient home recheck if has any further problems at the time she is reexamined she is resting comfortably with no further pain. Medical Records I reviewed the patient's medical records. Lab Data I reviewed the patient's lab results. 04/14/23 16:54 04/14/23 16:54 Labs/Radiology: Laboratory Results WBC 6.38 10^3/uL (3.29-11.43) 04/14/23 16:54 RBC 3.55 10^6/uL (3.85-5.65) L 04/14/23 16:54 Hgb 11.40 g/dL (11.27-16.99) 04/14/23 16:54 Hct 36.3 % (36-47) 04/14/23 16:54 MCV 102.3 fl (85-98) H 04/14/23 16:54 MCH 32.1 pg (27-33) 04/14/23 16:54 MCHC 31.4 g/dL (30-55) 04/14/23 16:54 RDW 14.0 % (12.1-15.1) 04/14/23 16:54 Plt Count 333 10^3/cmm (157-399) 04/14/23 16:54 MPV 8.8 fL (7.4-10.4) 04/14/23 16:54 Neut % (Auto) 84.5 % 04/14/23 16:54 Lymph % (Auto) 9.6 % 04/14/23 16:54 [place] % (Auto) 3.8 % 04/14/23 16:54 Eos % (Auto) 1.3 % 04/14/23 16:54 Baso % (Auto) 0.3 % 04/14/23 16:54 Neut # (Auto) 5.40 10^3/uL (1.8-7.7) 04/14/23 16:54 Lymph # (Auto) 0.6 10^3/uL (0.8-4.8) L 04/14/23 16:54 [place] # (Auto) 0.2 10^3/uL (0.2-0.9) 04/14/23 16:54 Eos # (Auto) 0.1 10^3/uL (0.0-0.8) 04/14/23 16:54 Baso # (Auto) 0.0 10^3/uL (0.0-0.1) 04/14/23 16:54 Nucleated RBC % (auto) 0 % 04/14/23 16:54 Nucleated RBCs # 0.0 /100WBC 04/14/23 16:54 Sodium 139 mmol/L (136-145) 04/14/23 16:54 Potassium 3.8 mmol/L (3.5-5.1) 04/14/23 16:54 Chloride 101 mmol/L (98-107) 04/14/23 16:54 Carbon Dioxide 24 mmol/L (22-29) 04/14/23 16:54 Anion Gap 17.8 (5-19) 04/14/23 16:54 BUN 15 mg/dL (8-23) 04/14/23 16:54 Creatinine 0.7 mg/dL (0.5-0.9) 04/14/23 16:54 GFR Calculation Not Reportable 04/14/23 16:54 Glucose 103 mg/dL (65-115) 04/14/23 16:54 Calculated Osmolality 289 mOsm/kg (285-295) 04/14/23 16:54 Calcium 9.3 mg/dL (8.5-10.5) 04/14/23 16:54 Total Bilirubin 0.6 mg/dL (0.15-1.2) 04/14/23 16:54 AST 46 U/L (0-32) H 04/14/23 16:54 ALT 22 U/L (0-33) 04/14/23 16:54 Alkaline Phosphatase 120 U/L (35-105) H 04/14/23 16:54 Total Protein 6.4 g/dL (6.6-8.7) L 04/14/23 16:54 Albumin 3.5 g/dL (3.5-5.2) 04/14/23 16:54 Globulin 2.9 g/dL (1.3-4.6) 04/14/23 16:54 No radiology studies performed this visit Discharge Plan Discharge Patient Disposition: Home Clinical Impression: Constipation Condition: Stable Prescriptions: No Action alendronate 70 mg tablet 70 mg PO Q7D famotidine 40 mg tablet 40 mg PO DAILY atorvastatin 10 mg tablet 10 mg PO DAILY duloxetine 60 mg capsule,delayed release(DR/EC) 60 mg PO DAILY Eliquis 2.5 mg tablet 2.5 mg PO BID 35 Days Qty: 70 0RF Discharge Orders: Discharge ED (Routine); Ordered 04/14/23 Ordered By: Farzad Stacy Referrals: Becky Wu FNP [Primary Care Provider] - Patient Instructions: Opioid Safety, Pain Management Activity Restrictions/Additional Instructions: You were seen today for abdominal pain laboratory tests are unremarkable you did have large amount of retained stool on the x-ray of your abdomen. Recommend use [id number] laxative such as milk of magnesia or MiraLAX. Coding Level of Care Code ED Physician Scribe for Roc Barr
[2023-04-14 17:21] LABS: Basophils % 0.3 %; Eosinophils # 0.1 10^3/uL (0.0-0.8); Eosinophils % 1.3 %; Hematocrit 36.3 % (36-47); Lymphocytes # 0.6 10^3/uL (0.8-4.8); Lymphocytes % 9.6 %; Mean Corpuscular HGB Conc 31.4 g/dL (30-55); Mean Corpuscular Hemoglobin 32.1 pg (27-33); Mean Corpuscular Volume 102.3 fl (85-98); Mean Platelet Volume 8.8 fL (7.4-10.4); Monocytes # 0.2 10^3/uL (0.2-0.9); Monocytes % 3.8 %; Neutrophils % 84.5 %; Nucleated Red Blood Cells % 0 %; Platelet Count 333 10^3/cmm (157-399); Red Blood Count 3.55 10^6/uL (3.85-5.65); White Blood Count 6.38 10^3/uL (3.29-11.43)
[2023-04-14 17:29] LABS: Alanine Aminotransferase 22 U/L (0-33); Albumin Level 3.5 g/dL (3.5-5.2); Alkaline Phosphatase 120 U/L (35-105); Anion Gap 17.8 (5-19); Aspartate Amino Transferase 46 U/L (0-32); Blood Urea Nitrogen 15 mg/dL (8-23); Calcium 9.3 mg/dL (8.5-10.5); Carbon Dioxide 24 mmol/L (22-29); Chloride 101 mmol/L (98-107); Creatinine Clr Calc Pharmacy 52.0124; Globulin 2.9 g/dL (1.3-4.6); Glucose 103 mg/dL (65-115); Osmolality Calculated 289 mOsm/kg (285-295); Potassium 3.8 mmol/L (3.5-5.1); Sodium 139 mmol/L (136-145); Total Bilirubin 0.6 mg/dL (0.15-1.2); Total Protein 6.4 g/dL (6.6-8.7)
--- NOTE | 2023-04-14 17:30 | XRR_ITS ---
PROCEDURE INFORMATION: Exam: XR Abdomen Exam date and time: 04/14/2023 5:40 PM Age: 72 years old Clinical indication: Abdominal pain TECHNIQUE: Imaging protocol: Radiologic exam of the abdomen. Views: Frontal supine view of the abdomen. 1 View. COMPARISON: CR XR hip LT 2-3V wo/w pel* [id number] 04/05/2023 10:16 AM FINDINGS: Gastrointestinal tract: Nonspecific bowel gas pattern with stool in the colon distally. No visible obstruction. Bones/joints: Left total hip arthroplasty changes are stable. Lumbar vertebroplasty changes. Soft tissues: Minimal soft tissue gas lateral to the left hip is decreased. This is likely postoperative. XR/XR KUB portable [id number] IMPRESSION: No acute findings.
[2023-04-14 17:54] LABS: Add Urine Microscopic? NO; Charge for UA Resulting for Rev
[2023-04-14 18:15] LABS: Bilirubin Urine Neg (Negative); Blood Urine Neg (Negative); Glucose Urine UA Norm (Normal); Ketones Urine Negative (Negative); Leukocyte Esterase Urine Negative (Negative); Nitrate Urine Negative (Negative); Protein Urine Neg (Negative); Specific Gravity, Urine 1.005 (1.005-1.030); Sulfosalicylic Acid Urine Negative (Negative); Urine Appearance Clear (CLEAR); Urine Color Yellow (Yellow); Urobilinogen Urine 8 mg/dL (Negative); pH Urine 8 (5-7)
[2023-04-14 18:30] VITALS: PULSE 86; RESP 18; O2SAT 97
== END 2023-04-14 18:33 | disposition home or self-care (01) ==
PROVIDERS: Emergency Provider Family Medicine; PCP Registered Nurse
DX: K59.00 Constipation, unspecified (principal); Z79.01 Long term (current) use of anticoagulants
CPT/HCPCS: 36415; 74018; 80053; 81003; 85025; 99284

== ENCOUNTER → 2023-04-20 14:22 | Outpatient (BNVA) | payer MEDICARE, OTHER, SELFPAY | PROVIDERS: PCP Registered Nurse; Visit Provider Student in an Organized Health Care Education/Training Program | DX: Z96.642 Presence of left artificial hip joint (principal) | CPT/HCPCS: 73502; 99024 ==

== ENCOUNTER → 2023-06-06 14:07 | Outpatient (BNVA) | payer MEDICARE, OTHER, SELFPAY | PROVIDERS: PCP Registered Nurse; Visit Provider Student in an Organized Health Care Education/Training Program | DX: Z96.642 Presence of left artificial hip joint (principal) | CPT/HCPCS: 73502; 99024 ==

== ENCOUNTER → 2023-09-12 13:20 | Outpatient (BNVA) | payer MEDICARE, OTHER, SELFPAY | PROVIDERS: PCP Nurse Practitioner Family; Visit Provider Student in an Organized Health Care Education/Training Program | DX: Z96.642 Presence of left artificial hip joint (principal) | CPT/HCPCS: 73502; 99213 ==

== ENCOUNTER 2023-12-31 13:05 | Emergency (ER) | payer MEDICARE, OTHER, SELFPAY ==
[2023-12-31 13:22] VITALS: BP 118/64; PULSE 79; RESP 17; TEMP 36.6; O2SAT 97; BMI 22.8
--- NOTE | 2023-12-31 13:39 | CTR_ITS ---
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 Radiation optimization: All CT scans at this facility use at least one of these dose optimization techniques: automated exposure control; mA and/or kV adjustment per patient size (includes targeted exams where dose is matched to clinical indication); or iterative reconstruction. COMPARISON: No relevant prior studies available. RADIATION DOSE METRICS: Total DLP (mGy-cm): 1019.2 FINDINGS: Brain: Embolic coils within the right parieto-occipital region with artifact limiting evaluation of this area. Associated encephalomalacia here. No hemorrhage. Negrete-white matter differentiation is grossly maintained. Focus of encephalomalacia in the right frontal lobe which appears to track to the right ventricle, potentially iatrogenic. Chronic white matter and senescent changes. Cerebral ventricles: Reflect volume loss. Paranasal sinuses: Visualized sinuses are grossly clear with minimal mucosal thickening and/or retention cyst formation. Mastoid air cells: No mastoid effusion. Bones: No acute findings. Soft tissues: No acute findings. 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 No acute intracranial findings appreciated.
[2023-12-31 13:52] LABS: Basophils % 0.5 %; Eosinophils # 0.1 10^3/uL (0.0-0.8); Eosinophils % 2.7 %; Hematocrit 44.9 % (36-47); Lymphocytes # 1.1 10^3/uL (0.8-4.8); Lymphocytes % 24.7 %; Mean Corpuscular HGB Conc 30.7 g/dL (30-55); Mean Corpuscular Hemoglobin 28.6 pg (27-33); Mean Corpuscular Volume 93.2 fl (85-98); Mean Platelet Volume 9.6 fL (7.4-10.4); Monocytes # 0.4 10^3/uL (0.2-0.9); Monocytes % 8.2 %; Neutrophils # 2.78 10^3/uL (1.8-7.7); Neutrophils % 63.7 %; Nucleated Red Blood Cells % 0 %; Platelet Count 236 10^3/cmm (157-399); Red Blood Count 4.82 10^6/uL (3.85-5.65); Red Cell Distribution Width 13.2 % (12.1-15.1); White Blood Count 4.37 10^3/uL (3.29-11.43)
--- NOTE | 2023-12-31 13:52 | W.ED.HA ---
HPI - Headache General: Chief Complaint: Headache Stated Complaint: Weakness/confusion Time Seen by Provider: 12/31/23 13:09 Source: patient Mode of arrival: ambulatory Limitations: no limitations History of Present Illness: 73-year-old female states that she had a mild headache last 2 days and states she had an episode of 30 minutes where she was confused last night. States that since resolved she has not had any more confusion states her headache has resolved as well she is concerned that she has had a brain bleed in the past she denies any fevers denies any worse improving factors. Associated symptoms: Deny chest pain, fever(s), nausea, rash or vomiting Review of Systems Const: Denies: fever(s), chills, body aches or change in appetite ENMT: Denies: throat pain or dental pain Card: Denies: chest pain Resp: Denies: dyspnea GI: Denies: abdominal pain, nausea, vomiting or diarrhea Musc: Denies: neck pain or back pain Skin/Breast: Denies: rash Neuro: Reports: headache(s) PFSH ED PFSH: Medical History Hip pain Surgical History History of hip surgery Family History Denies family history of CAD (coronary artery disease) Social History Smoking and tobacco/nicotine status: unknown if used tobacco/nicotine Alcohol intake: never Physical Exam Const: COMMON NORMALS: no acute distress, patient oriented x3 and healthy appearing HENMT: COMMON NORMALS: normocephalic and atraumatic HEAD & SCALP: normocephalic and atraumatic Eye: COMMON NORMALS: Equal, round and reactive pupils present and EOMs intact bilaterally PUPIL: Yes Equal, round and reactive pupils present Neck/C-Spine: COMMON NORMALS: full ROM and supple Chest: COMMONS NORMALS: normal inspection of the chest Resp: COMMON NORMALS: normal respiratory effort, No retractions, No use of accessory muscles and clear to auscultation bilaterally AUSCULTATION: clear to auscultation bilaterally Cardio: COMMON NORMALS: regular rate RATE: regular rate Extremity: COMMON NORMALS: normal to inspection and full ROM Neuro: COMMON NORMALS: patient oriented x3, moves all extremities and no focal motor deficits Psych: COMMON NORMALS: mental status grossly normal, Normal thought process present and cooperative THOUGHT PROCESS: Normal thought process present Skin: COMMON NORMALS: no rashes or lesions noted and no wounds GENERAL SKIN EXAM: no rashes or lesions noted Course Vital Signs: Vital signs: Vital Signs Temperature 97.9 F 12/31/23 13:22 Pulse Rate 79 12/31/23 13:22 Respiratory Rate 17 12/31/23 13:22 Blood Pressure 118/64 12/31/23 13:22 Pulse Oximetry 97 12/31/23 13:22 Oxygen Delivery Me thod Room Air 12/31/23 13:22 MDM - Headache Medical Decision Making Patient presents here with a headache along with some confusion that is since resolved she has been well-appearing here head CT here is negative no signs of stroke or hemorrhage she stable for discharge she is follow-up with PCP and return if worsening she understands agrees to plan. Medical Records I reviewed the patient's medical records. Lab Data I reviewed the patient's lab results. 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 No acute intracranial findings appreciated. Laboratory Results WBC 4.37 10^3/uL (3.29-11.43) 12/31/23 13:44 RBC 4.82 10^6/uL (3.85-5.65) 12/31/23 13:44 Hgb 13.80 g/dL (11.27-16.99) 12/31/23 13:44 Hct 44.9 % (36-47) 12/31/23 13:44 MCV 93.2 fl (85-98) 12/31/23 13:44 MCH 28.6 pg (27-33) 12/31/23 13:44 MCHC 30.7 g/dL (30-55) 12/31/23 13:44 RDW 13.2 % (12.1-15.1) 12/31/23 13:44 Plt Count 236 10^3/cmm (157-399) 12/31/23 13:44 MPV 9.6 fL (7.4-10.4) 12/31/23 13:44 Neut % (Auto) 63.7 % 12/31/23 13:44 Lymph % (Auto) 24.7 % 12/31/23 13:44 [place] % (Auto) 8.2 % 12/31/23 13:44 Eos % (Auto) 2.7 % 12/31/23 13:44 Baso % (Auto) 0.5 % 12/31/23 13:44 Neut # (Auto) 2.78 10^3/uL (1.8-7.7) 12/31/23 13:44 Lymph # (Auto) 1.1 10^3/uL (0.8-4.8) 12/31/23 13:44 [place] # (Auto) 0.4 10^3/uL (0.2-0.9) 12/31/23 13:44 Eos # (Auto) 0.1 10^3/uL (0.0-0.8) 12/31/23 13:44 Baso # (Auto) 0.0 10^3/uL (0.0-0.1) 12/31/23 13:44 Nucleated RBC % (auto) 0 % 12/31/23 13:44 Nucleated RBCs # 0.0 /100WBC 12/31/23 13:44 Sodium 144 mmol/L (136-145) 12/31/23 13:44 Potassium 4.2 mmol/L (3.5-5.1) 12/31/23 13:44 Chloride 108 mmol/L (98-107) H 12/31/23 13:44 Carbon Dioxide 25 mmol/L (22-29) 12/31/23 13:44 Anion Gap 15.2 (5-19) 12/31/23 13:44 BUN 15 mg/dL (8-23) 12/31/23 13:44 Creatinine 0.9 mg/dL (0.5-0.9) 12/31/23 13:44 GFR Calculation Not Reportable 12/31/23 13:44 Glucose 114 mg/dL (65-115) 12/31/23 13:44 Calculated Osmolality 300 mOsm/kg (285-295) H 12/31/23 13:44 Calcium 9.3 mg/dL (8.5-10.5) 12/31/23 13:44 Total Bilirubin 0.4 mg/dL (0.15-1.2) 12/31/23 13:44 AST 23 U/L (0-32) 12/31/23 13:44 ALT 13 U/L (0-33) 12/31/23 13:44 Alkaline Phosphatase 77 U/L (35-105) 12/31/23 13:44 Total Protein 6.6 g/dL (6.6-8.7) 12/31/23 13:44 Albumin 4.2 g/dL (3.5-5.2) 12/31/23 13:44 Globulin 2.4 g/dL (1.3-4.6) 12/31/23 13:44 All radiology interpretation(s) finalized by discharge Discharge Plan Discharge Patient Disposition: Home Clinical Impression: Headache Condition: Stable Prescriptions: No Action alendronate 70 mg tablet 70 mg PO Q7D famotidine 40 mg tablet 40 mg PO DAILY atorvastatin 10 mg tablet 10 mg PO DAILY duloxetine 60 mg capsule,delayed release(DR/EC) 60 mg PO DAILY Discharge Orders: Discharge ED (Routine); Ordered 12/31/23 Ordered By: Albertina Berrios Referrals: Myriam Vazquez FNP [Primary Care Provider] - 4-7 days Discharge Diet: Advance as tolerated Discharge Activity: Resume usual activity Patient Instructions: General Headache (ED) Coding Level of Care Code ED Grades 9 Through 12 Teacher for Roc Barr
[2023-12-31] MEDS: sodium chloride 0.9% 500 ML IV (14:09)
[2023-12-31 14:13] LABS: Alanine Aminotransferase 13 U/L (0-33); Albumin Level 4.2 g/dL (3.5-5.2); Alkaline Phosphatase 77 U/L (35-105); Anion Gap 15.2 (5-19); Aspartate Amino Transferase 23 U/L (0-32); Blood Urea Nitrogen 15 mg/dL (8-23); Calcium 9.3 mg/dL (8.5-10.5); Carbon Dioxide 25 mmol/L (22-29); Chloride 108 mmol/L (98-107); Creatinine Clr Calc Pharmacy 46.3506; Globulin 2.4 g/dL (1.3-4.6); Glucose 114 mg/dL (65-115); Osmolality Calculated 300 mOsm/kg (285-295); Potassium 4.2 mmol/L (3.5-5.1); Sodium 144 mmol/L (136-145); Total Bilirubin 0.4 mg/dL (0.15-1.2); Total Protein 6.6 g/dL (6.6-8.7)
[2023-12-31 14:30] VITALS: BP 141/67; PULSE 67; O2SAT 96
[2023-12-31 15:00] VITALS: BP 145/66; PULSE 66; O2SAT 99
[2023-12-31 15:54] VITALS: BP 154/68; PULSE 65; O2SAT 97
== END 2023-12-31 15:55 | disposition home or self-care (01) ==
PROVIDERS: Emergency Provider Emergency Medicine; PCP Nurse Practitioner Family
DX: R51.9 Headache, unspecified (principal)
CPT/HCPCS: 36415; 70450; 80053; 85025; 96360; 96361; 99284; J7040

== ENCOUNTER → 2024-01-17 12:14 | Outpatient (BNVA) | payer MEDICARE, OTHER, SELFPAY | PROVIDERS: PCP Nurse Practitioner Family; Visit Provider Internal Medicine Rheumatology | DX: M81.0 Age-related osteoporosis without current pathological fracture (principal); Q68.1 Congenital deformity of finger(s) and hand; M16.12 Unilateral primary osteoarthritis, left hip; Z79.899 Other long term (current) drug therapy | CPT/HCPCS: 36415; 73130; 73630; 80076; 82306; 82310; 82565; 85025; 85651; 86140; 86200; 99204 ==

== ENCOUNTER 2024-01-25 13:04 | Oncology outpatient (recurring) (ONCR) | payer MEDICARE, OTHER, SELFPAY ==
[2024-01-25] MEDS: denosumab 60 mg SDV SUBCUT (13:44)
[2024-01-25 13:51] VITALS: BP 152/89; PULSE 68; O2SAT 98
== END 2024-02-07 23:59 | disposition home or self-care (01) ==
PROVIDERS: PCP Nurse Practitioner Family; Visit Provider Internal Medicine Rheumatology
DX: M81.0 Age-related osteoporosis without current pathological fracture (principal); Z79.620 Long term (current) use of immunosuppressive biologic
CPT/HCPCS: 96372; J0897

== ENCOUNTER → 2024-05-30 15:46 | Outpatient (BNVA) | payer MEDICARE, OTHER, SELFPAY | PROVIDERS: PCP Nurse Practitioner Family; Visit Provider Physician Assistant | DX: Z96.642 Presence of left artificial hip joint (principal) | CPT/HCPCS: 73502; 99213 ==

== ENCOUNTER 2024-07-23 13:00 | Oncology outpatient (recurring) (ONCR) | payer MEDICARE, OTHER, SELFPAY ==
[2024-07-23] MEDS: denosumab 60 mg SDV SUBCUT (13:26)
[2024-07-23 13:29] VITALS: BP 179/94; PULSE 66; RESP 16; TEMP 36.5; O2SAT 96
== END 2024-08-09 23:59 | disposition home or self-care (01) ==
PROVIDERS: PCP Nurse Practitioner Family; Visit Provider Internal Medicine Rheumatology
DX: M81.0 Age-related osteoporosis without current pathological fracture (principal); Z79.899 Other long term (current) drug therapy
CPT/HCPCS: 96372; J0897

== ENCOUNTER → 2024-12-17 14:54 | Outpatient (BNVA) | payer MEDICARE, OTHER, SELFPAY | PROVIDERS: PCP Nurse Practitioner Family; Visit Provider Internal Medicine Rheumatology | DX: M81.0 Age-related osteoporosis without current pathological fracture (principal); M54.50 Low back pain, unspecified; Z79.899 Other long term (current) drug therapy; Q68.1 Congenital deformity of finger(s) and hand | CPT/HCPCS: 72100; 99214 ==

== ENCOUNTER 2025-01-03 12:59 | Outpatient (CLI) | payer MEDICARE, OTHER, SELFPAY ==
--- NOTE | 2025-01-03 13:00 | XR_ITS ---
WS: [id number] DEXA (DUAL ENERGY X-RAY ABSORPTIOMETRY) Bone mineral density was performed using a [employer] machine. HISTORY: M81.0 - Age-related osteoporosis without current patholog... COMPARISON: None available. Left forearm BMD: 0.763 g/cm2. T score: -1.3 Z score: 0.9 Total hip BMD: Right: 0.707. T score: -2.4 Z score: -0.6 10 year probability of a major osteoporotic fracture is 16.9%. XR/XR DEXA axial skeleton* [id number] IMPRESSION: OSTEOPENIA based upon the WHO classification for females.
== END 2025-01-03 13:00 | disposition home or self-care (01) ==
LOC: RAD 12:59
PROVIDERS: PCP Nurse Practitioner Family; Visit Provider Internal Medicine Rheumatology
DX: M81.0 Age-related osteoporosis without current pathological fracture (principal); M85.89 Other specified disorders of bone density and structure, multiple sites
CPT/HCPCS: 77080

== ENCOUNTER → 2025-01-09 09:00 | Outpatient (BNVA) | payer MEDICARE, OTHER, SELFPAY | PROVIDERS: PCP Nurse Practitioner Family; Visit Provider Orthopaedic Surgery | DX: M54.50 Low back pain, unspecified (principal); M54.9 Dorsalgia, unspecified; M54.2 Cervicalgia | CPT/HCPCS: 72110; 99203 ==

== ENCOUNTER 2025-01-15 09:21 | Outpatient (CLI) | payer MEDICARE, OTHER, SELFPAY ==
--- NOTE | 2025-01-15 09:30 | MR_ITS ---
WS: [id number] MRI LUMBAR SPINE NONCONTRAST TECHNIQUE: Sagittal T1, T2 and STIR imaging. Axial T1 and T2 imaging. CLINICAL INFORMATION: Back Pain COMPARISON: None. FINDINGS: Mild lumbar curve. No acute compression. Prior kyphoplasty changes L2 and L4. No high-grade central canal stenosis. L1-L2: Mild annular bulging. Narrowing of the subarticular recess bilaterally. Mild facet arthropathy. Mild LEFT foraminal narrowing. L2-L3: Mild annular bulging. Impingement of the RIGHT subarticular recess and traversing RIGHT L3 nerve root. Mild central canal stenosis. Moderate facet arthropathy. Mild RIGHT foraminal narrowing. L3-L4: Mild annular bulging. Impingement on the RIGHT greater than LEFT subarticular recess. Moderate facet arthropathy. Mild central canal stenosis. Foramen are patent. L4-L5: Mild annular bulging with severe central canal stenosis. Impingement of traversing L5 nerve roots. Advanced facet arthropathy with ligamentum flavum hypertrophy. Mild LEFT foraminal narrowing. L5-S1: Mild disc bulging with impingement on the subarticular recess and traversing S1 nerve roots bilaterally. Advanced facet arthropathy. Moderate LEFT and mild RIGHT foraminal narrowing. Visualized pelvic bony structures: Normal. Paravertebral soft tissues: Normal. MR/MR lumbar spine wo con* [id number] IMPRESSION: 1. Mild lumbar curve. No acute compression. 2. Prior kyphoplasty changes L2 and L4. 3. Severe central canal stenosis L4-5. 4. Mild central canal stenosis L2-3 with a RIGHT subarticular protrusion. Impi ngement of the RIGHT subarticular recess and traversing RIGHT L3 nerve root. 5. Mild central canal stenosis L3-4 with narrowing of the subarticular recess. 6. Disc bulging L5-S1 impinges the traversing S1 nerve roots. 7. Moderate LEFT L5-S1 foraminal narrowing. 8. Moderate to advanced facet arthropathy L3-L5.
--- NOTE | 2025-01-15 10:15 | MR_ITS ---
WS: [id number] MRI CERVICAL SPINE NONCONTRAST TECHNIQUE: Sagittal T1, T2 and STIR imaging. Axial T2, gradient, and fiesta imaging. CLINICAL INFORMATION: Neck Pain COMPARISON: None. FINDINGS: Chronic appearing compression with anterior wedging at T2, T3, and T5. Exaggeration of the normal cervical lordosis. Small disc osteophyte protrusions worse at C5-C6 and C6-C7. Mild central canal stenosis C5-C6 and C6-C7 with slight indentation on the cervical cord. C2-C3: Normal. C3-C4: Slight retrolisthesis. Mild disc bulging C3-4. Moderate facet arthropathy. Uncovertebral joint hypertrophy. Mild RIGHT greater than LEFT bony foraminal narrowing. C4-C5: Disc osteophyte complex with endplate ridging. Moderate facet arthropathy. Mild bilateral bony foraminal narrowing. C5-C6: Disc osteophyte complex with mild central canal stenosis. Indentation with slight flattening of the cervical cord. Moderate facet arthropathy. Uncovertebral joint hypertrophy. Severe LEFT and moderate RIGHT bony foraminal narrowing. C6-C7: Central disc osteophyte protrusion with slight indentation on the cervical cord. Mild bilateral bony foraminal narrowing. Uncovertebral joint hypertrophy. C7-T1: Mild LEFT and no significant RIGHT bony foraminal narrowing. Mild facet arthropathy. Spinal canal is patent. Visualized brain stem structures: Normal. Prevertebral soft tissues: Normal. MR/MR cervical spin wo con* [id number] IMPRESSION: 1. Exaggeration of the normal cervical lordosis. Disc osteophyte protrusions C 5-C6 and C6-C7 with mild central canal stenosis and slight indentation on the c ervical cord worse at C5-6. Tiny amount of myelomalacia in the cervical cord. 2. Severe LEFT C5-C6 bony foraminal narrowing. 3. Moderate facet arthropathy worse at C3-C4, C4-5, LEFT C5-6. 4. Chronic appearing compression with anterior wedging at T2, T3, and T5.
--- NOTE | 2025-01-15 11:00 | MR_ITS ---
WS: [id number] MRI THORACIC SPINE WITHOUT CONTRAST TECHNIQUE: Sagittal T1, T2 and STIR imaging. Axial T2 imaging. Noncontrast imaging obtained. CLINICAL INFORMATION: Back Pain COMPARISON: None. FINDINGS: Moderate thoracic kyphosis. No acute compression fractures. No high-grade central canal stenosis. Cord signal is normal. Moderate spondylitic changes. Chronic compression with anterior wedging at T2, T3, T5, and T7. A few shallow protrusions in the mid and lower thoracic spine narrowing. Disc bulging v isualized in the upper lumbar spine will be described on the lumbar spine MRI. Moderate facet arthropathy lower thoracic spine. Moderate bony foraminal narrowing T2-3 and T3-4. Moderate LEFT T4-T5 bony foraminal narrowing. Moderate bilateral T5-6 bony foraminal narrowing. Cholelithiasis. Mild dilatation of the common bile duct. Moderate esophageal hiatal hernia with thickening at the GE junction. This could further evaluated with endoscopy. Adrenal glands are normal. Peripelvic renal cysts. Normal caliber descending thoracic aorta. IMPRESSION 1. Moderate thoracic kyphosis. No acute compression fractures. No high-grade central canal stenosis. Cord signal is normal. 2. Moderate spondylitic changes. 3. Chronic compression with anterior wedging at T2, T3, T5, and T7. 4. A few shallow protrusions in the mid and lower thoracic spine 5. Irregular soft tissue thickening at the GE junction with moderate esophageal hiatal hernia. Recommend further evaluation with endoscopy. 6. Cholelithiasis. Mild dilatation of the common bile duct. This could be further evaluated with MRCP.
== END 2025-01-15 09:22 | disposition home or self-care (01) ==
PROVIDERS: PCP Nurse Practitioner Family; Visit Provider Orthopaedic Surgery
DX: M48.02 Spinal stenosis, cervical region (principal); M50.222 Other cervical disc displacement at C5-C6 level; M40.204 Unspecified kyphosis, thoracic region; M48.54XA Collapsed vertebra, not elsewhere classified, thoracic region, initial encounter for fracture; M50.223 Other cervical disc displacement at C6-C7 level; M47.812 Spondylosis without myelopathy or radiculopathy, cervical region; M48.062 Spinal stenosis, lumbar region with neurogenic claudication
CPT/HCPCS: 72141; 72146; 72148

== ENCOUNTER → 2025-01-23 13:01 | Outpatient (BNVA) | payer MEDICARE, OTHER, SELFPAY | PROVIDERS: PCP Nurse Practitioner Family; Visit Provider Orthopaedic Surgery | DX: M54.50 Low back pain, unspecified (principal); G89.29 Other chronic pain | CPT/HCPCS: 99213 ==

== ENCOUNTER 2025-01-31 10:15 | Oncology outpatient (recurring) (ONCR) | payer MEDICARE, OTHER, SELFPAY ==
[2025-01-31] MEDS: denosumab 60 mg SDV SUBCUT (10:51)
== END 2025-02-06 23:59 | disposition home or self-care (01) ==
PROVIDERS: PCP Nurse Practitioner Family; Visit Provider Internal Medicine Rheumatology
DX: M81.0 Age-related osteoporosis without current pathological fracture (principal); Z79.899 Other long term (current) drug therapy
CPT/HCPCS: 96402; J0897

== ENCOUNTER → 2025-06-25 14:51 | Outpatient (BNVA) | payer MEDICARE, OTHER, SELFPAY | PROVIDERS: PCP Nurse Practitioner Family; Visit Provider Physician Assistant | DX: Z47.89 Encounter for other orthopedic aftercare (principal); Z96.642 Presence of left artificial hip joint | CPT/HCPCS: 73502; 99213 ==

== ENCOUNTER → 2025-07-01 09:09 | Outpatient (BNVA) | payer MEDICARE, OTHER, SELFPAY | PROVIDERS: PCP Nurse Practitioner Family; Visit Provider Internal Medicine Rheumatology | DX: M81.0 Age-related osteoporosis without current pathological fracture (principal); Q68.1 Congenital deformity of finger(s) and hand | CPT/HCPCS: 99214 ==